=== PATIENT | female | born 1960 | race Caucasian/White ===

== ENCOUNTER → 2021-07-24 15:10 | Outpatient (CLI) | payer OTHER, SELFPAY ==
--- NOTE | ~2021-07-24 | XR_ITS ---
XR knee RT min 4V 07/24/2021 15:35 Indication: Osteoarthritis of the right knee. Procedure: 4 views of the right knee Comparison: No prior studies for comparison. Findings: No fracture, subluxation or dislocation. No significant joint effusion. No foreign bodies. Mild medial compartmental joint space narrowing. Small patellofemoral compartment osteophytes. Impression: 1: Mild osteoarthritis of the right knee. Reviewed, dictated and finalized at location B. ING CHECKER Impression: 1: Mild osteoarthritis of the right knee.
== END ==
PROVIDERS: PCP Family Medicine; Visit Provider Family Medicine
DX: M17.11 Unilateral primary osteoarthritis, right knee (principal)
CPT/HCPCS: 73564

== ENCOUNTER → 2021-12-22 16:11 | Outpatient (CLI) | payer OTHER, SELFPAY ==
--- NOTE | ~2021-12-22 | MR_ITS ---
EXAMINATION: MR knee RT wo con DATE: 12/22/2021 16:55 INDICATION: Chronic right knee pain. TECHNIQUE: Magnetic resonance imaging (MRI) of the right knee was performed without intravenous contr ast. Sequences included axial PD-weighted FS FSE, coronal PD-weighted FSE and PD-weighted FS FSE, sag ittal PD-weighted FSE, and sagittal T2-weighted FS FSE. COMPARISON: Right knee radiographs 07/24/2021 FINDINGS: Medial compartment: There is a complex tear of body and posterior horn of medial meniscus. There is full-thickness cartil age loss of tibial condyle involving the medial articular surface. There is full-thickness cartilage loss of femoral condyle involving the central and medial articular surface with subchondral cysts and mild subchondral edema-like marrow signal intensity. Lateral compartment: Lateral meniscus is normal. There is deep partial thickness cartilage loss of femoral condyle involvi ng the central articular surface. There is deep partial thickness cartilage loss of tibial condyle in volving the central articular surface. There are tiny osteophytes. Patellofemoral compartment: There is shallow partial-thickness cartilage loss of patellar medial and lateral facets and median ri dge. There is shallow partial-thickness cartilage loss of trochlea. Osteophytes are noted. Ligaments and tendons: The anterior and posterior cruciate ligament are normal. There are changes of prior sprain of medial collateral ligament characterized by thickening and increased signal intensity. Lateral collateral li gament complex is intact. There is mild patellar tendinopathy. Fluid: There is a moderate-sized knee joint effusion. There is trace fluid in a Nolan's cyst. There is mild prepatellar and superficial infrapatellar bursitis. IMPRESSION: 1. Severe chondrosis of medial compartment, moderate chondrosis of lateral compartment, and mild binu drosis of patellofemoral compartment. 2. Tear of medial meniscus. 3. Small knee joint effusion. Reviewed, dictated and finalized at location A. IMPRESSION: 1. Severe chondrosis of medial compartment, moderate chondrosis of lateral comp artment, and mild chondrosis of patellofemoral compartment. 2. Tear of medial meniscus. 3. Small knee joint effusion.
== END ==
PROVIDERS: PCP Family Medicine; Visit Provider Orthopaedic Surgery
DX: M25.561 Pain in right knee (principal); G89.29 Other chronic pain; M22.2X1 Patellofemoral disorders, right knee; S83.241A Other tear of medial meniscus, current injury, right knee, initial encounter; M25.461 Effusion, right knee
CPT/HCPCS: 73721

== ENCOUNTER → 2022-01-02 14:57 | Outpatient (CLI) | payer OTHER, SELFPAY ==
--- NOTE | ~2022-01-02 | XR_ITS ---
EXAM: [id number] DATE: 01/02/2022 15:14 HISTORY: neck pain . COMPARISON: None available. FINDINGS: Cervicothoracic junction poorly visualized in the lateral views. Craniocervical association and atlantoaxial joint are normal. No prevertebral soft tissue swelling. 2 mm anterolisthesis of C4 on C5. Vertebral body heights are maintained. Mild disc space narrowing at C4-5. Moderate narrowing a t C5-6 and C6-7. Mild multilevel facet sclerosis. IMPRESSION: Grade 1 anterolisthesis of C4 on C5. Mild-moderate degenerative disc disease in the lower cervical spine. Multilevel facet arthropathy. Reviewed, dictated and finalized at location K. IMPRESSION: Grade 1 anterolisthesis of C4 on C5. Mild-moderate degenerative dis c disease in the lower cervical spine. Multilevel facet arthropathy.
== END ==
PROVIDERS: PCP Physician Assistant; Visit Provider Physician Assistant
DX: M50.30 Other cervical disc degeneration, unspecified cervical region (principal)
CPT/HCPCS: 72040